=== PATIENT | male | born 1970 ===

== ENCOUNTER 2019-10-12 06:15 | Day surgery (SDC) | payer OTHER ==
[~2019-10-12 06:15] MED LIST: ASPIR 8181 MG PO; LIPITOR40 MG PO; NORVASC10 MG PO; TOPROL XL50 M1 PO; VASOTEC20 M1 PO
[2019-10-12] MEDS ORDERED: OXYC1TAB9 PO (11:21)
[2019-10-12] MEDS ORDERED: DUI500 PO (11:21)
== END 2019-10-12 14:25 | disposition home or self-care (01) ==
LOC: CIR.AMB 06:15 → ADM 08:30 → CIR.AMB 08:30
DX: M75.101 Unspecified rotator cuff tear or rupture of right shoulder, not specified as traumatic (principal)